=== PATIENT | male | born 1990 | race Asian ===

== ENCOUNTER 2022-08-21 20:08 | Emergency (ER) | payer OTHER ==
[2022-08-21 20:30] VITALS: BP 160/76
--- NOTE | 2022-08-21 21:05 | XRAY Report ---
PROCEDURE: Ankle 3 View RT INDICATIONS: sports injury, c/o pain., swelling TECHNIQUE: 3 views of the ankle were acquired. COMPARISON: None. FINDINGS: Bones: No fractures or dislocations. Ankle mortise is normally aligned. No suspicious bony lesions . Soft tissues: No tibiotalar joint effusion. Achilles tendon appears normal. IMPRESSION: No acute osseous abnormality. Reviewed by: Bao Red MD on 08/21/2022 9:03 PM PDT Approved by: Bao Red MD on 08/21/2022 9:03 PM PDT Station ID: [id number]
--- NOTE | 2022-08-21 21:26 | ED Physician Documentation ---
PD HPI LOWER EXT INJURY - Stated complaint Stated Complaint: RT ANKLE PAIN - Chief complaint Chief Complaint: Trauma Ext - History obtained from History obtained from: Patient (Kicked in the back of the right ankle while playing soccer just prior to arrival. Moderate pain and unable to walk.) PD PAST MEDICAL HISTORY - Past Medical History Past Medical History: No - Past Surgical History Past Surgical History: No - Present Medications Home Medications: Ambulatory Orders Medication Instructions Recorded Confirmed Atomoxetine HCl [Strattera] 40 mg PO DAILY 08/21/22 08/21/22 HYDROcod/ACETAM 5/325 [Bridgman 5/325] 1 - 2 tab PO Q6H PRN #15 tablet 08/21/22 - Allergies Allergies/Adverse Reactions: Allergies Allergy/AdvReac Type Severity Reaction Status Date / Time No Known Drug Allergies Allergy Verified 08/21/22 20:30 - Social History Does the pt smoke?: No Does the pt drink ETOH?: No Does the pt have substance abuse?: No - Immunizations Immunizations are current?: Yes PD ED PE NORMAL - Vitals Vital signs reviewed: Yes - General General: Alert and oriented X 3, No acute distress - Derm Derm: Normal color, Warm and dry - Extremities Extremities: Other (He is tender over the Achilles tendon of the right ankle with no movement with Nunn's test.) - Neuro Neuro: Alert and oriented X 3, Normal speech Results - Vitals Vitals: Vital Signs - 24 hr 08/21/22 20:28 Temperature 36.1 C L Heart Rate 88 Respiratory 16 Rate Blood Pressure 160/76 H O2 Saturation 100 Oxygen O2 Source Room air - Rads (name of study) Three-view x-ray of the right ankle is unremarkable Relevant Findings:: Final report received, EMP independent interpretation of test Procedures - Splint (location) - Minor Right lower extremity Splint applied by: Physician Type of splint: Fiberglass, Short leg, Posterior Other: Patient tolerated well, No complications, Neurovascular intact, Crutches provided Departure - Departure Disposition: 01 Home, Self Care Clinical Impression: Achilles tendon injury Qualifiers: Encounter type: initial encounter Laterality: right Qualified Code(s): S86.001A - Unspecified injury of right Achilles tendon, initial encounter Condition: Good Record reviewed to determine appropriate education?: Yes Instructions: ED Tendon Rupture Achilles Prescriptions: HYDROcod/ACETAM 5/325 [Bridgman 5/325] 1 - 2 tab PO Q6H PRN #15 tablet PRN Reason: Pain Comments: You were seen today after being kicked in the Achilles tendon, and you do not have any motion with what is known as Nunn's test which is concerning for an Achilles tendon rupture. Follow-up with one of [facility] orthopedic surgeons [facility] this [facility]. [facility] the [facility] tomorrow to schedule. Return for new or worsening symptoms. Do not walk or bear weight on the leg until advised it is safe to do so. I sent your prescription electronically to [facility] in [place]. I am prescribing a short course of narcotic pain medication for you. These are potentially dangerous and addictive medications that should be used carefully. These medications may constipate you. Take an [id number] stool softener (docusate) twice daily with plenty of water while taking these medications. If you go 24 hours without a bowel movement, take [id number] miralax, per package instructions. Do not drink or drive while taking these medications. If you received narcotic or sedating medications while in the emergency department, do not drive for 24 hours. Store this medication in a safe, secure place and out of reach of children. It is a violation of federal law to give or sell this medication to another person or to use in a manner other than prescribed. The ED will not refill narcotic prescriptions, including prescriptions lost or stolen. To dispose of unwanted medications: 1. [facility] at [address] in [place] has a medication drop box. They accept prescription medications (in pill form) Friday through Friday 9:00 a.m. to 5:00 p.m. 2. The [facility] [employer] accepts prescription medications (in pill form only) for disposal year round. Call for more information. 3. Contact the [facility] for the next [facility] sponsored prescription drug collection event. , [phone], or [phone]; Note that many narcotic pain relievers also contain Tylenol/acetaminophen. Please ensure that your total dose of acetaminophen from all sources does not exceed 3 g (3000 mg) per day. Forms: Activity restrictions
[2022-08-21] MEDS ORDERED: HYDROcod/ACET 5/325 Prepack 4 PO STA (21:29)
== END 2022-08-21 21:43 | disposition home or self-care (01) ==
LOC: ED 20:08
DX: S86.001A Unspecified injury of right Achilles tendon, initial encounter (principal); W50.0XXA Accidental hit or strike by another person, initial encounter; Y93.66 Activity, soccer; Y92.322 Soccer field as the place of occurrence of the external cause
CPT/HCPCS: 29515; 99283